=== PATIENT | female | born 1995 | race Caucasian/White ===

== ENCOUNTER 2022-01-24 05:26 | Emergency (ER) | payer SELFPAY ==
[~2022-01-24] VITALS: Ht 165.1 cm; Wt 59.0 kg
--- NOTE | 2022-01-24 06:10 | NUR ---
Dr. Erazo at bedside.
--- NOTE | 2022-01-24 06:14 | NUR ---
Called [employer] to file report. no answer. Was on hold for 20 mins
--- NOTE | 2022-01-24 06:15 | NUR ---
Patient eloped from facility. ER physician notified.
[2022-01-24 06:38] VITALS: BP 124/81
== END 2022-01-24 06:16 | disposition left against medical advice (07) ==
LOC: ER 05:37
DX: T76.21XA Adult sexual abuse, suspected, initial encounter (principal)
CPT/HCPCS: A4663